=== PATIENT | female | born 1990 | race American Indian/Alaskan Native ===

== ENCOUNTER 2017-05-25 00:53 | Emergency (ER) | payer SELFPAY | END 2017-05-25 02:30 | disposition left against medical advice (07) | LOC: ED 00:53 | DX: R10.9 Unspecified abdominal pain (principal); R07.9 Chest pain, unspecified; Z53.21 Procedure and treatment not carried out due to patient leaving prior to being seen by health care provider | CPT/HCPCS: 93005; 93010 ==